=== PATIENT | male | born 1995 | race Caucasian/White ===

== ENCOUNTER 2019-06-16 14:07 | Emergency (ER) | payer OTHER ==
[~2019-06-16] VITALS: Ht 177.8 cm; Wt 142.9 kg
[2019-06-16 14:23] VITALS: BP 139/73
--- NOTE | 2019-06-16 14:28 | NUR ---
WAIT AT [facility]. FLU SWAB COLLECTED.
[2019-06-16] MEDS ORDERED: ACETAMINOPHEN EXTRA STRENGTH 500 MG TAB PO ONE ×2 (14:30→20:55)
--- NOTE | 2019-06-16 18:03 | NUR ---
Patient ambulated to bed 6. RN evaluating patient at bedside.
--- NOTE | 2019-06-16 18:05 | NUR ---
24 Y/O MALE BIB PARENTS C/O FEVER, CONGESTION, AND SORE THROAT X 2 DAYS. PT STATES HE VOMITED X 2 ON SUNDAY, DENIES VOMITING/NAUSEA TODAY. 5/10 ACHING TO GENERALIZED BODY. PT SITTING UPRIGHT POSITIONED FOR COMFORT. RR EVEN AND UNLABORED. PARENTS AT BEDSIDE. VSS MEDHX: DENIES ALLERGIES: NKA
--- NOTE | 2019-06-16 19:27 | NUR ---
Dr. Domínguez examining patient.
[2019-06-16] MEDS ORDERED: NACL 0.9% 2,000 ML IV ONE (19:30)
[2019-06-16] MEDS ORDERED: KETOROLAC 30 MG/ML VIAL IVP ONE (19:30)
--- NOTE | 2019-06-16 19:30 | NUR ---
ASSUMED CARE OF PT AT THIS TIME. PT C/O BODY ACHE, FEVER, CHILLS, N/V X 3 DAYS. PT HAD FEVER OF 101 IN LOBBY, WAS GIVEN 1000MG OF TYLENOL. PT ALSO TACHY AT 143. PT STILL TACHY AT 130. PT STILL HOT TO TOUCH. PT APPEARS TO BE LETHARGIC. PT NEGATIVE FOR FLU. DR. UREÑA NOTIFED OF PT CONDITION. SKIN IS PINK/HOT/DRY; AAOX4; LUNGS CLEAR BL; HR EVEN AND REGULAR; PT DENIES ANY CP, SOB, OR COUGH AT THIS TIME; PATIENT STATES PAIN OF 5/10 AT THIS TIME; VSS; PATIENT POSITIONED FOR COMFORT; HOB ELEVATED; BEDRAILS UP X2; BED DOWN.
[2019-06-16] MEDS ORDERED: ONDANSETRON 4 MG/2 ML VIAL IVP ONE (20:00)
--- NOTE | 2019-06-16 20:45 | NUR ---
PT HR STILL 130s. PT FEVER 102.[address] UREÑA AWARE. DR. UREÑA STATES WILL ORDER MEDS.
[2019-06-16] MEDS ORDERED: IBUPROFEN 600 MG TAB ONE (20:55)
[2019-06-16] MEDS ORDERED: IBUPROFEN 600 MG TAB PO ONE (20:55)
[2019-06-16] MEDS ORDERED: ACETAMINOPHEN EXTRA STRENGTH 500 MG TAB ONE (20:56)
--- NOTE | 2019-06-16 21:47 | NUR ---
Patient discharged with v/s stable. Written and verbal after care instructions given and explained. Patient alert, oriented and verbalized understanding of instructions. Ambulatory with steady gait. All questions addressed prior to discharge. ID band removed. Patient advised to follow up with PMD. Rx of TYLENOL WAS given. Patient educated on indication of medication including possible reaction and side effects. Opportunity to ask questions provided and answered. PT WAS D/C BY DR. UREÑA
[2019-06-16 21:49] VITALS: BP 137/92
== END 2019-06-16 21:47 | disposition home or self-care (01) ==
LOC: MED 14:07
DX: B34.9 Viral infection, unspecified (principal); E86.0 Dehydration; E66.9 Obesity, unspecified
CPT/HCPCS: 87804; 96361; 96374; 96375; 99284; J1885; J2405; J7030